=== PATIENT | female | born 1955 | race African-American/Black ===

== ENCOUNTER 2019-10-08 17:08 | Emergency (ER) | payer MEDICARE, OTHER ==
[~2019-10-08] VITALS: Ht 170.2 cm; Wt 84.1 kg
[2019-10-08 19:25] LABS: AMPHET/METH SCREEN,URINE NEGATIVE (NEGATIVE); BARBITURATE SCREEN, URINE NEGATIVE (NEGATIVE); BENZODIAZEPINES SCREEN,URINE NEGATIVE (NEGATIVE); CANNABINOID SCREEN,URINE NEGATIVE (NEGATIVE); COCAINE SCREEN,URINE NEGATIVE (NEGATIVE); METHADONE SCREEN, URINE NEGATIVE (NEGATIVE); OPIATE SCREEN,URINE NEGATIVE (NEGATIVE); PHENCYCLIDINE SCREEN,URINE NEGATIVE (NEGATIVE)
[2019-10-08] MEDS ORDERED: ZOLPIDEM TARTRATE 10 MG TABLET PO PRN (20:45)
[2019-10-08] MEDS ORDERED: HALOPERIDOL 5 MG TABLET PO PRN (20:45)
[2019-10-08] MEDS ORDERED: LORazepam 2 MG TABLET PO PRN (20:45)
[2019-10-09 13:03] VITALS: BP 181/102
== END 2019-10-09 14:13 | disposition other institution (70) ==
LOC: EMS 17:24
DX: Z03.818 Encounter for observation for suspected exposure to other biological agents ruled out (principal); F91.8 Other conduct disorders; R45.851 Suicidal ideations; I10 Essential (primary) hypertension; F20.9 Schizophrenia, unspecified; F17.200 Nicotine dependence, unspecified, uncomplicated; Z91.19 Patient's noncompliance with other medical treatment and regimen